=== PATIENT | female | born 1970 | race African-American/Black ===

== ENCOUNTER 2024-03-26 17:44 | Emergency (ER) | payer MEDICARE, OTHER ==
[~2024-03-26] VITALS: Ht 152.4 cm; Wt 85.4 kg
[2024-03-26 18:23] VITALS: BP 123/87; PULSE 79; RESP 20; TEMP 99.5; O2SAT 96
== END 2024-03-26 19:08 | disposition home or self-care (01) ==
LOC: ER 17:44
DX: R05.8 Other specified cough (principal); I10 Essential (primary) hypertension
CPT/HCPCS: 71046

== ENCOUNTER 2024-05-18 12:17 | Emergency (ER) | payer MEDICARE, OTHER ==
[~2024-05-18] VITALS: Ht 165.1 cm; Wt 87.0 kg
[2024-05-18 13:21] LABS: Urine Bacteria FEW /hpf (None Seen); Urine Blood Negative /uL (Negative); Urine Clarity Turbid (Clear); Urine Color Colorless (Yellow); Urine Protein, UAD Negative (Negative); Urine Specific Gravity 1.004 (1.001-1.035); Urine Urobilinogen Normal (Negative); Urine WBC <1 /hpf (0 - 5)
[2024-05-18 13:37] VITALS: BP 136/82; TEMP 98.1
[2024-05-18 13:39] VITALS: PULSE 70; RESP 14; O2SAT 98
[2024-05-18] MEDS ORDERED: ACET-1080 PO (13:59)
[2024-05-18] MEDS ORDERED: NITR-87 PO (13:59)
== END 2024-05-18 14:13 | disposition home or self-care (01) ==
LOC: ER 12:27
DX: N39.0 Urinary tract infection, site not specified (principal); M54.50 Low back pain, unspecified; I12.9 Hypertensive chronic kidney disease with stage 1 through stage 4 chronic kidney disease, or unspecified chronic kidney disease; N18.9 Chronic kidney disease, unspecified; Z88.5 Allergy status to narcotic agent
CPT/HCPCS: 81001

== ENCOUNTER 2024-05-31 12:42 | Inpatient (IN) | payer MEDICARE, OTHER ==
[~2024-05-31] VITALS: Ht 165.1 cm; Wt 86.3 kg
[~2024-05-31 12:42] MED LIST: ACET-1080 PO; NITR-87 PO
[2024-05-31 13:53] LABS: Basophils # (auto) 0.1 10 ^3/uL (0-0.2); Eosinophils # (auto) 0.2 10 ^3/uL (0-0.8); Hemoglobin 14.7 g/dL (12.2-16.2); Lymphocytes # (auto) 1.6 10 ^3/uL (0.4-5.4); Lymphocytes % (auto) 27.6 % (10.0-50.0); Mean Corpuscular Hemoglobin 30.2 pg (28.0-32.0); Mean Corpuscular Hgb Conc. 34.3 g/dL (32.0-36.0); Mean Corpuscular Volume 87.9 fL (80.0-100.0); Monocytes # (auto) 0.5 10 ^3/uL (0-1.3); Monocytes % (auto) 8.4 % (0.0-12.0); Neutrophils # (auto) 3.4 10 ^3/uL (1.6-8.6); Nucleated Red Blood Cells % 0.1 %; Platelet Count (auto) 241 10^3/uL (140-450); Red Blood Cells 4.89 10^6/uL (4.0-5.20); Red Cell Distribution Width 14.3 % (11.8-14.3); White Blood Cell 5.8 10^3/uL (4.4-10.8)
[2024-05-31 13:54] LABS: Chloride 108 mmol/L (98-107); Potassium 4.6 mmol/L (3.5-5.1); Sodium 139 mmol/L (136-145)
[2024-05-31 13:55] LABS: Anion Gap 4 (5-15); Carbon Dioxide 27 mmol/L (20-31)
[2024-05-31 13:56] LABS: Calcium 9.2 mg/dL (8.7-10.4)
[2024-05-31 14:00] LABS: BUN/Creatinine Ratio 6.5 (10.0-20.0); Blood Urea Nitrogen 11 mg/dL (9-23); Glucose 80 mg/dL (74-106)
[2024-05-31 14:35] LABS: Urine Bacteria FEW /hpf (None Seen); Urine Blood Negative /uL (Negative); Urine Clarity Turbid (Clear); Urine Color Colorless (Yellow); Urine Protein, UAD Negative (Negative); Urine Specific Gravity 1.004 (1.001-1.035); Urine Urobilinogen Normal (Negative); Urine WBC 2 /hpf (0 - 5)
[2024-05-31] MEDS ORDERED: DOCUSATE SOD 100 MG CAP PO PRN (19:00)
[2024-05-31] MEDS ORDERED: ONDANSETRON HCL 4 MG/2 ML VIAL IV PRN (19:00)
[2024-05-31] MEDS ORDERED: CLON0.2T PO (19:13)
[2024-05-31] MEDS ORDERED: MELO15TA29 PO (19:13)
[2024-05-31] MEDS ORDERED: AMLO1TAB22 PO (19:13)
[2024-05-31] MEDS ORDERED: CARV25TA55 PO (19:13)
[2024-05-31] MEDS ORDERED: SPIR50TA5 PO (19:13)
[2024-05-31] MEDS ORDERED: ASPI-325 PO (19:13)
[2024-05-31] MEDS ORDERED: GABA800T97 PO (19:13)
[2024-05-31] MEDS ORDERED: NIFE1TAB31 PO (19:13)
[2024-05-31] MEDS ORDERED: ATOR-47 PO (19:13)
[2024-05-31] MEDS: SODIUM CHLORIDE 0.9% 1,000 ML IV ONE (21:07)
[2024-05-31] MEDS: cefTRIAXone 1GM/50ML D5W 50 ML IV ONE (21:07)
[2024-05-31] MEDS: GABAPENTIN 400 MG CAP PO SCH (22:00)
[2024-05-31] MEDS: cloNIDine HCL 0.1 MG TAB PO SCH (22:36)
[2024-05-31] MEDS: NIFEdipine ER 30 MG TAB PO SCH (22:36)
[2024-05-31] MEDS: CARVEDILOL 12.5 MG TAB PO SCH (22:37)
[2024-06-01] MEDS: ACETAMINOPHEN 500 MG TAB PO PRN (06:25)
[2024-06-01 06:36] LABS: Basophils # (auto) 0.1 10 ^3/uL (0-0.2); Basophils % (auto) 0.9 % (0.0-2.0); Eosinophils # (auto) 0.3 10 ^3/uL (0-0.8); Eosinophils % (auto) 4.7 % (0.0-7.0); Hematocrit 39.8 % (36.0-46.0); Hemoglobin 13.7 g/dL (12.2-16.2); Lymphocytes # (auto) 1.6 10 ^3/uL (0.4-5.4); Lymphocytes % (auto) 28.9 % (10.0-50.0); Mean Corpuscular Hemoglobin 30.4 pg (28.0-32.0); Mean Corpuscular Hgb Conc. 34.5 g/dL (32.0-36.0); Mean Corpuscular Volume 88.1 fL (80.0-100.0); Monocytes # (auto) 0.5 10 ^3/uL (0-1.3); Neutrophils # (auto) 3.1 10 ^3/uL (1.6-8.6); Neutrophils % (auto) 56.5 % (37.0-80.0); Platelet Count (auto) 223 10^3/uL (140-450); Red Blood Cells 4.52 10^6/uL (4.0-5.20); Red Cell Distribution Width 14.5 % (11.8-14.3); White Blood Cell 5.5 10^3/uL (4.4-10.8)
[2024-06-01 06:43] LABS: Alanine Aminotransferase 16 U/L (7-40); Albumin 3.7 g/dL (3.2-4.8); Alkaline Phosphatase 65 U/L (46-116); Anion Gap 4 (5-15); Aspartate Aminotransferase 14 U/L (13-40); Bilirubin, Total 0.4 mg/dL (0.2-1.0); Blood Urea Nitrogen 9 mg/dL (9-23); Carbon Dioxide 23 mmol/L (20-31); Chloride 113 mmol/L (98-107); Glucose 85 mg/dL (74-106); Potassium 4.2 mmol/L (3.5-5.1); Sodium 140 mmol/L (136-145); Total Protein 6.1 g/dL (5.7-8.2)
[2024-06-01 06:44] LABS: BUN/Creatinine Ratio 5.8 (10.0-20.0)
[2024-06-01 08:05] VITALS: PULSE 62; RESP 14; O2SAT 97
[2024-06-01] MEDS: cefTRIAXone 1GM/50ML D5W 50 ML IV SCH (09:35)
[2024-06-01] MEDS: Meloxicam 15MG TAB PO SCH (10:00)
[2024-06-01] MEDS ORDERED: ATORVASTATIN 20 MG TAB PO SCH (10:00)
[2024-06-01] MEDS: ASPirin-EC 81 mg tab PO SCH (10:18)
[2024-06-01] MEDS: SPIRONOLACTONE 25 MG TAB PO SCH (10:19)
[2024-06-01] MEDS: amLODIPine BESYLATE 5 MG TAB PO SCH (10:25)
[2024-06-01 13:00] VITALS: BP 150/93; PULSE 58; RESP 20; TEMP 98.6; O2SAT 94
[2024-06-01 16:45] LABS: Erythrocyte Sedimentation Rate 7 mm/hr (0-20)
[2024-06-01 18:17] VITALS: BP 123/71; PULSE 61; RESP 20; TEMP 98.7; O2SAT 97
[2024-06-01 21:00] VITALS: BP 145/97; PULSE 67; RESP 19; TEMP 98.2; O2SAT 96
[2024-06-01] MEDS: ATORVASTATIN 20 MG TAB PO SCH (22:00)
[2024-06-02 01:00] VITALS: BP 138/82; PULSE 69; RESP 18; TEMP 97.7; O2SAT 98
[2024-06-02 05:00] VITALS: BP 143/97; PULSE 61; RESP 19; TEMP 98.1; O2SAT 96
[2024-06-02 08:00] VITALS: PULSE 68; RESP 16; O2SAT 97
[2024-06-02 08:39] VITALS: BP 127/81; PULSE 58; RESP 16; TEMP 98; O2SAT 97
== END 2024-06-02 09:00 | disposition left against medical advice (07) | DRG 690 ==
LOC: ER 12:42 → OVERFLOW 18:56 → WEST WING 06-01 11:19 → CENTRAL 06-01 17:35
PROVIDERS: ADMIT Nurse Practitioner Family; ATTEND Nurse Practitioner Acute Care
DX: N39.0 Urinary tract infection, site not specified (principal); N18.9 Chronic kidney disease, unspecified; I12.9 Hypertensive chronic kidney disease with stage 1 through stage 4 chronic kidney disease, or unspecified chronic kidney disease; Z53.29 Procedure and treatment not carried out because of patient's decision for other reasons; E66.9 Obesity, unspecified; N13.9 Obstructive and reflux uropathy, unspecified; Z87.440 Personal history of urinary (tract) infections; Z90.710 Acquired absence of both cervix and uterus; Z88.5 Allergy status to narcotic agent; Z68.31 Body mass index [BMI] 31.0-31.9, adult; Z79.899 Other long term (current) drug therapy; R10.2 Pelvic and perineal pain
CPT/HCPCS: 36415; 76775; 76856; 80048; 80053; 81001; 85025; 85652; 86141; G0378